=== PATIENT | male | born 1990 | race Caucasian/White ===

== ENCOUNTER 2020-05-22 08:22 | Outpatient (CLI) | payer SELFPAY ==
[2020-05-22 08:57] LABS: Viscosity Semen Normal; Volume Semen 3.5 mL (2-5)
[2020-05-22 08:58] LABS: Epithelial Count Semen 0-4 /hpf; Pathology Referral Yes; Sperm Immotility 50 % (50-60); Sperm Non-Progressive Motility 5 % (5-10); Sperm Progressive Motility 45 % (31-34); White Blood Count Semen 0-4 /hpf
[2020-05-22 10:25] LABS: Side 1 105
[2020-05-22 10:26] LABS: Side 2 92
== END 2020-05-22 08:23 | disposition home or self-care (01) ==
PROVIDERS: Visit Provider Obstetrics & Gynecology
DX: Z31.41 Encounter for fertility testing (principal)
CPT/HCPCS: 80500; 89320